=== PATIENT | female | born 1990 | race Caucasian/White ===

== ENCOUNTER 2018-12-23 18:43 | Emergency (ER) | payer MEDICAID ==
[~2018-12-23] VITALS: Ht 160 cm; Wt 83.5 kg
[~2018-12-23 18:43] MED LIST: IBUP-1542 PO; PREN-39 PO
[2018-12-23 18:54] VITALS: Ht 160 cm; Wt 83.5 kg
[2018-12-24] MEDS ORDERED: LORAZEPAM 2 MG INJ IV ONE (02:00)
--- NOTE | 2018-12-24 02:39 | ERD ---
ER Documentation Chief Complaint Chief Complaint CP/ SOB X'S 2 DAYS HPI This is a very pleasant 20 significant was that she had chest pain and shortness breath for the past 2 days. Chest pain is mild to moderate intensity no exacerb ating relieving factors patient states she has been under a lot of stress lately feels that is likely stress related. She denies any fevers or chills. Denies any shortness of breath on exertion. Denies any other current complaints. ROS All systems reviewed and are negative except as per history of present illness. Medications Home Meds Active Scripts Ibuprofen* (Motrin*) 600 Mg Tab, 600 MG PO Q6, #20 TAB Prov:ULICES DELGADO MD 03/21/15 Reported Medications Vits W-Ca,Fe,Fa(<1MG) ( Vitamins) 1 Tab Tablet, 1 TAB PO DAILY 03/20/15 Allergies Allergies: Coded Allergies: No Known Allergy (Verified Allergy, Unknown, 01/25/09) PMhx/Soc Medical and Surgical Hx: pt denies Medical Hx, pt denies Surgical Hx Hx Alcohol Use: No Hx Substance Use: No Hx Tobacco Use: No Smoking Status: Never smoker Physical Exam Vitals Vital Signs Date Temp Pulse Resp B/P (MAP) Pulse Ox O2 O2 Flow FiO2 Time Delivery Rate 12/24/18 88 19 121/85 95 Room Air 02:33 (97) 12/23/18 98.6 76 18 140/86 98 18:54 (104) Physical Exam Const: No acute distress Head: Atraumatic Eyes: Normal Conjunctiva ENT: Normal External Ears, Nose and Mouth. Neck: Full range of motion. No meningismus. Resp: Clear to auscultation bilaterally Cardio: Regular rate and rhythm, no murmurs Abd: Soft, non tender, non distended. Normal bowel sounds Skin: No petechiae or rashes Back: No midline or flank tenderness Ext: No cyanosis, or edema Neur: Awake and alert Psych: Normal Mood and Affect Result Diagram: 12/23/183412/23/1834 Results 24 hrs Laboratory Tests Test 12/23/18 00:35 12/24/18 00:35 White Blood Count 6.2 10^3/ul Red Blood Count 4.80 10^6/ul Hemoglobin 14.2 g/dl Hematocrit 42.6 % Mean Corpuscular Volume 88.8 fl Mean Corpuscular Hemoglobin 29.6 pg Mean Corpuscular Hemoglobin Concent 33.3 g/dl Red Cell Distribution Width 12.6 % Platelet Count 305 10^3/UL Mean Platelet Volume 9.7 fl Immature Granulocytes % 0.300 % Neutrophils % 56.8 % Lymphocytes % 29.7 % Monocytes % 8.6 % Eosinophils % 4.1 % Basophils % 0.5 % Nucleated Red Blood Cells % 0.0 /100WBC Immature Granulocytes # 0.020 10^3/ul Neutrophils # 3.5 10^3/ul Lymphocytes # 1.8 10^3/ul Monocytes # 0.5 10^3/ul Eosinophils # 0.3 10^3/ul Basophils # 0.0 10^3/ul Nucleated Red Blood Cells # 0.0 10^3/ul Urine Color LISETH Urine Clarity CLOUDY Urine pH 5.0 Urine Specific Riggins 1.030 Urine Ketones NEGATIVE mg/dL Urine Nitrite NEGATIVE mg/dL Urine Bilirubin NEGATIVE mg/dL Urine Urobilinogen NEGATIVE mg/dL Urine Leukocyte Esterase 3+ John/ul Urine Microscopic RBC 10 /HPF Urine Microscopic WBC 29 /HPF Urine Squamous Epithelial Cells FEW /HPF Urine Bacteria FEW /HPF Urine Mucus MANY /HPF Urine Hemoglobin 1+ mg/dL Urine Glucose NEGATIVE mg/dL Urine Total Protein NEGATIVE mg/dl Sodium Level 141 mmol/L Potassium Level 3.9 mmol/L Chloride Level 101 mmol/L Carbon Dioxide Level 26 mmol/L Anion Gap 14 Blood Urea Nitrogen 12 mg/dl Creatinine 0.68 mg/dl Est Glomerular Filtrat Rate mL/min > 60 mL/min Glucose Level 127 mg/dl Calcium Level 9.5 mg/dl Total Bilirubin 0.7 mg/dl Direct Bilirubin 0.00 mg/dl Indirect Bilirubin 0.7 mg/dl Aspartate Amino Transf (AST/SGOT) 34 IU/L Alanine Aminotransferase (ALT/SGPT) 27 IU/L Alkaline Phosphatase 77 IU/L Troponin I < 0.012 ng/ml B-Type Natriuretic Peptide 16 PG/ML Total Protein 8.0 g/dl Albumin 4.6 g/dl Globulin 3.40 g/dl Albumin/Globulin Ratio 1.35 Urine Test NEGATIVE Current Medications Medications Dose Sig/Maximiliano Start Time Status Last (Trade) Ordered Route PRN Stop Time Admin Dose Reason Admin Lorazepam 0.5 mg ONCE ONCE 12/24/18 DC 12/24/18 (Ativan) IV 02:00 02:17 12/24/18 02:01 Procedures/MDM Emergency department course: Patient seen and charge nurse. Placed in bed from evaluation. Had blood work done. Placed on continuous cardiac exercise specialist. A stat EKG stat chest x-ray. Given lorazepam. Serial exams are stable. Good response to lorazepam, patient felt much better. Diagnostic data: EKG: Rate/Rhythm: [Normal Sinus Rhythm] QRS, ST, T-waves: [No changes consistent w/ acute ischemia] Impression: [No evidence of ischemia or arrhythmia] Chest X-ray 1V Interpreted by me: Soft Tissue: No acute abnormaliti es Bones: No acute abnormalities Mediastinum/Cardiac Silhouette/Lungs: [No acute abnormalities] Medical decision making: Patient's thoracic symptoms have stabilized while in the department and are stable for outpatient follow up. Exam and work up not consistent w/ ischemia, arrhythmia, PE or dissection. Departure Diagnosis: Primary Impression: Chest pain Chest pain type: unspecified Qualified Codes: R07.9 - Chest pain, unspecified Condition: Stable JOSE MUNGUIA Dec 24, 2018 02:39
[2018-12-24] MEDS ORDERED: LORA-441 PO (02:40)
[2018-12-24 03:40] VITALS: BP 130/65; PULSE 88; RESP 19
== END 2018-12-24 03:42 | disposition home or self-care (01) ==
LOC: E/R 18:43
DX: R07.9 Chest pain, unspecified (principal)
CPT/HCPCS: 36415; 71045; 80053; 81001; 83880; 84484; 84703; 85025; 93005; 96374; J2060; Z7502